=== PATIENT | male | born 2000 | race Caucasian/White ===

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

== ENCOUNTER 2021-02-26 20:24 | Emergency (ER) | payer BC, SELFPAY ==
[2021-02-26 20:25] VITALS: BP 166/92; PULSE 81; RESP 18; TEMP 37.1; O2SAT 98; BMI 41.0
[2021-02-26] MEDS: oxyCODONE 5 MG Tablet PO (20:40)
[2021-02-26] MEDS: Clindamycin HCl 150 MG Capsule 450 MG PO (20:40)
--- NOTE | 2021-03-02 15:22 | EDS_ITS ---
HPI History of Present Illness Chief Complaint: Dental Narrative Narrative: 20-year-old male presenting with right lower dental pain. He denies any trauma. He denies any oral swelling. He states he has a dentist but cannot get into the dentist right away. He has not had a fever or chills. He has no trouble breathing or swallowing. PFSH PFSH Home Medications ondansetron 4 mg PO Q8H PRN PRN #7 tab 10/13/18 [Rx Last Taken Unknown] clindamycin HCl 450 mg PO Q8H 10 Days #90 cap 02/26/21 [Rx Last Taken Unknown] naproxen [Naprosyn] 500 mg PO BID #30 tab 02/26/21 [Rx Last Taken Unknown] Allergy/AdvReac Type Severity Reaction Status Date / Time No Known Allergies Allergy Verified 02/26/21 20:26 Social History Smoking Status: Never smoker ROS ROS ED Constitutional Constitutional ED: Denies chills or fever(s) Eyes Eyes: Denies change in vision ENT ENT ED: Reports other Details: Dental pain right lower mandible ; Denies rhinorrhea or sore throat Cardiovascular Cardiovascular: Denies chest pain or palpitations Respiratory/Chest Respiratory/Chest: Denies cough or dyspnea Gastrointestinal Gastrointestinal: Denies abdominal pain or nausea Genitourinary Genitourinary ED: Denies dysuria or hematuria Musculoskeletal Musculoskeletal: Denies arthralgias or myalgias Integumentary Denies abscess or rash Neurologic Neurologic: Denies headache(s) or paresthesias EXAM Physical Exam Const Positive well nourished General Appearance ED: NAD HEENT HEENT Narrative: Percussion tenderness of tooth #28. There is no gingival swelling. No sublingual edema. Oropharynx is patent without stridor. Negative for trauma Eyes PERRL and EOMs intact bilaterally Neck no lymphadenopathy and supple Resp normal respiratory effort and clear to auscultation bilaterally Cardio regular rate and regular rhythm Neuro oriented x3 Sensorium / Orientation: alert Psych mental status grossly normal Skin no rashes or lesions noted MDM MDM MDM Narrative Medical decision making narrative: Patient presenting with dental pain concern for infection. He has a dental appointment already. He was unable to obtain pain medication or antibiotics. Patient started on clindamycin and Naprosyn and first dose given in the ED. Impression: #1 dental infection Discharge Plan Triage Chief Complaint: Dental ED Provider: Sean Willett Dx/Rx/DC Orders Instructions: ED Dental Pain Prescriptions: New clindamycin HCl 150 mg capsule 450 mg PO Q8H 10 Days Qty: 90 RF: 0 naproxen [Naprosyn] 500 mg tablet 500 mg PO BID Qty: 30 RF: 0 No Action ondansetron 4 MG tablet 4 mg PO Q8H PRN PRN (Reason: Nausea) Qty: 7 RF: 0 Primary Care Provider: Abdifatah Moore NP Referrals: Abdifatah Moore NP, [employer] TECHNICIAN-C [Primary Care Provider] - Disposition Disposition: Home, Self Care Discharge Date/Time: 02/26/21 20:44
== END 2021-02-26 20:44 | disposition home or self-care (01) ==
PROVIDERS: Emergency Provider Student in an Organized Health Care Education/Training Program; PCP Nurse Practitioner Family
DX: K04.7 Periapical abscess without sinus (principal); Z79.1 Long term (current) use of non-steroidal anti-inflammatories (NSAID); Z79.899 Other long term (current) drug therapy
CPT/HCPCS: 99283

== ENCOUNTER 2022-07-27 15:00 | Emergency (ER) | payer BC, SELFPAY ==
[2022-07-27 15:01] VITALS: BP 162/106; PULSE 73; RESP 16; TEMP 35.9; O2SAT 100; BMI 42.0
--- NOTE | 2022-07-27 15:24 | CT_ITS ---
EXAM: CT ABDOMEN AND PELVIS WITHOUT INTRAVENOUS CONTRAST CLINICAL INDICATION: left flank pain TECHNIQUE: Helically acquired images were obtained of the abdomen and pelvis without intravenous contrast. This CT exam was performed using one or more of the following dose reduction techniques: automated exposure control, adjustment of the mA and/or kV according to patient size, and/or use of iterative reconstruction technique. This report was created using [employer] report generation technology. COMPARISON: None. FINDINGS: LOWER THORAX: Unremarkable. Lung bases are clear. No cardiomegaly. No significant pericardial effusion. ABDOMEN: LIVER: Unremarkable. Homogeneous. GALLBLADDER AND BILE DUCTS: Unremarkable. No calcified gallstones. No gallbladder distention or wall edema. No intra- or extrahepatic biliary ductal dilation. PANCREAS: Unremarkable. No focal cystic mass. SPLEEN: Unremarkable. Normal size without focal cystic or solid mass. ADRENALS: Unremarkable. No nodules. KIDNEYS AND URETERS: Mild left-sided hydronephrosis and hydroureter. There is a 4 mm stone distal left ureter. Normal renal size and position. STOMACH AND BOWEL: Unremarkable. No stomach or bowel distention. No focal inflammatory change. PELVIS: APPENDIX: No evidence of acute appendicitis. BLADDER: Unremarkable. REPRODUCTIVE: Unremarkable as visualized. No mass. ABDOMEN and PELVIS: INTRAPERITONEAL SPACE: Unremarkable. No ascites or other fluid collection. No free air. BONES/JOINTS: Unremarkable. No suspicious lytic or blastic abnormality. SOFT TISSUES: Unremarkable. No discrete abdominal or pelvic wall hernia. VASCULATURE: Unremarkable. Abdominal aorta is non-dilated. LYMPH NODES: Unremarkable. No enlarged lymph nodes. CT/Abdomen/Pelvis without Cont IMPRESSION: Obstruction of the left collecting system due to a 4 mm stone in the distal left ureter. There is mild left-sided hydronephrosis. Electronically Signed: Aguila Rodriguez MD at 16:20 EST ,
--- NOTE | 2022-07-27 15:25 | EX.ED.DYSGE1 ---
HPI History of Present Illness Chief Complaint: Flank Pain Informant: patient Onset/Context/Timing Onset: Yesterday Timing: Intermittent Current Severity: Mild Maximum Severity: Severe Narrative Narrative: Patient present secondary to intermittent left flank pain and hematuria. He states that he was leaving work last evening he developed left flank pain. He had to supervisor [employer] on the way home to urinate multiple times. Upon arriving home he noted blood in his urine. Pain seemed to subside last evening but then recurred again today as he was leaving work. He had slight hematuria when he first woke this morning but no further hematuria the remainder the day. He has had nausea but no vomiting. He denies history of kidney stone. No fall or injury. PFSH PFSH Medical History no medical history no medical history Home Medications ondansetron 4 mg disintegrating tablet 4 mg PO Q8H PRN PRN Nausea #7 tabs 10/13/18 [Rx Last Taken Unknown] clindamycin HCl 150 mg capsule 450 mg PO Q8H 10 days #90 caps 02/26/21 [Rx Last Taken Unknown] naproxen 500 mg tablet (Naprosyn) 500 mg PO BID #30 tabs 02/26/21 [Rx Last Taken Unknown] hydrocodone-acetaminophen 5-325mg 5mg-325mg 1 tab PO Q6H PRN pain 3 days #10 tabs 07/27/22 [Rx Last Taken Unknown] ibuprofen 800 mg tablet 800 mg PO Q8H PRN pain #14 tabs 07/27/22 [Rx Last Taken Unknown] ondansetron 4 mg disintegrating tablet 4 mg PO Q8H PRN nausea and vomiting #10 tabs 07/27/22 [Rx Last Taken Unknown] Allergy/AdvReac Type Severity Reaction Status Date / Time No Known Allergies Allergy Verified 07/27/22 15:01 Social History Smoking Status: Never smoker ROS ROS ED Constitutional Constitutional ED: Denies chills or fever(s) Eyes Eyes: Denies change in vision or discharge from eye(s) ENT ENT ED: Denies discharge from eye(s), rhinorrhea or sore throat Cardiovascular Cardiovascular: Denies chest pain or palpitations Respiratory/Chest Respiratory/Chest: Denies cough or dyspnea Gastrointestinal Gastrointestinal: Reports abdominal pain and nausea; Denies diarrhea or vomiting Genitourinary Genitourinary ED: Reports hematuria; Denies dysuria Musculoskeletal Musculoskeletal: Denies back pain or extremity pain Integumentary Denies Abrasions or rash Neurologic Neurologic: Denies headache(s) or weakness Allergic/Immunologic Allergic/Immunologic ED: Denies lip swelling or urticaria EXAM Physical Exam Const Vital Signs: 07/27/22 15:01 Temperature 96.7 F L Temperature Source Temporal Pulse Rate 73 Respiratory Rate 16 Blood Pressure 162/106 H Blood Pressure Mean 124 Pulse Ox 100 Oxygen Delivery Method Room Air Positive well nourished and well developed General Appearance ED: well developed HEENT Reports normocephalic and head/scalp atraumatic Eyes PERRL and EOMs intact bilaterally Neck supple Chest Wall inspection of chest normal and palpation of chest normal Resp normal respiratory effort and clear to auscultation bilaterally Cardio regular rate and regular rhythm GI normal to inspection, nondistended, normoactive bowel sounds Palpation: soft Extremity normal to inspection Neuro oriented x3 and no sensory deficits noted Sensorium / Orientation: alert Motor Exam: strength 5/5 throughout Psych mental status grossly normal Skin no rashes or lesions noted MDM MDM MDM Narrative Medical decision making narrative: Patient did drive himself to the emergency room so Toradol and Zofran were given along with IV fluids. Lab work, urinalysis, CT flank obtained. Lab Data Attestation: I reviewed the patient's lab results. Labs: Laboratory Results - last 24 hr 07/27/22 07/27/22 07/27/22 15:42 15:42 15:42 WBC 8.9 RBC 5.43 Hgb 15.2 Hct 45.0 MCV 82.9 MCH 28.0 MCHC 33.8 RDW Std Deviation 38.8 RDW Coeff of Damian 13.0 Plt Count 242 MPV 11.8 Immature Gran % (Auto) 0.200 Neut % (Auto) 63.0 Lymph % (Auto) 28.6 [place] % (Auto) 6.8 Eos % (Auto) 1.1 Baso % (Auto) 0.3 Absolute Neuts (auto) 5.6 Absolute Lymphs (auto) 2.53 Nucleated RBC % 0 Sodium 140 Potassium 3.6 Chloride 107 Carbon Dioxide 26.0 Anion Gap 7 BUN 15 Creatinine 1.03 Estim Creat Clear Calc 119.81 Est GFR (MDRD) Af Amer 116 Est GFR (MDRD) Non-Af 95 BUN/Creatinine Ratio 14.6 Glucose 95 Calcium 9.8 Urine Color Yellow Urine Clarity Clear Urine pH 6.0 Ur Specific [place] 1.020 Urine Protein Negative Urine Glucose (UA) Normal Urine Ketones 50 H Urine Occult Blood 150 H Urine Nitrite Negative Urine Bilirubin Negative Urine Urobilinogen Normal Ur Leukocyte Esterase Negative Urine RBC 5-10 SEEN Urine WBC 0-5 SEEN Ur Squamous Epith Cells 0 SEEN Urine Bacteria 0 SEEN Urine Mucus 0 SEEN Radiography Diagnostic Testing: Clinical Impression(s) from Imaging Studies Abdomen/Pelvis CT 07/27/22 15:24 IMPRESSION: Obstruction of the left collecting system due to a 4 mm stone in the distal left ureter. There is mild left-sided hydronephrosis. Electronically Signed: Aguila Rodriguez MD at 16:20 EST , Treatment and Re-Evaluation Narrative: On repeat evaluation patient is resting comfortably. He easily awakens. CBC and chemistry studies are unremarkable with normal renal function. Urinalysis does reveal blood but no sign of infection. CT flank reveals obstruction of the left secondary to a 4 mm stone in the distal left ureter. Mild left hydronephrosis is noted. Test results are discussed with the patient. I will write him for ibuprofen, Zofran, [place]. He is referred to Dr. Espinoza if not improving. Return instructions to the ER are also given. Discharge Plan Triage Chief Complaint: Flank Pain ED Provider: Radha Bishop Dx/Rx/DC Orders Clinical Impression: Ureterolithiasis Instructions: ED Kidney Stone w/ Colic Prescriptions: New ibuprofen 800 mg tablet 800 mg PO Q8H PRN (Reason: pain) Qty: 14 0RF ondansetron 4 mg tablet,disintegrating 4 mg PO Q8H PRN (Reason: nausea and vomiting) Qty: 10 0RF hydrocodone-acetaminophen 5-325 mg tablet 1 tab PO Q6H PRN (Reason: pain) 3 Days Qty: 10 0RF No Action ondansetron 4 MG tablet 4 mg PO Q8H PRN PRN (Reason: Nausea) Qty: 7 0RF clindamycin HCl 150 mg capsule 450 mg PO Q8H 10 Days Qty: 90 0RF naproxen [Naprosyn] 500 mg tablet 500 mg PO BID Qty: 30 0RF Primary Care Provider: Abdifatah Moore NP Referrals: Bryson Espinoza MD [Med Staff - Active Staff] - 1 Week if not improving Abdifatah Moore NP, HARNESS TIER-C [Primary Care Provider] - Disposition Disposition: Home, Self Care
[2022-07-27 15:47] LABS: Bacteria 0 SEEN /hpf (None Seen); Mucous, Urine 0 SEEN /hpf (<or=2+); Squamous Epithelial Cells - UA 0 SEEN /hpf (0-5)
[2022-07-27] MEDS: 0.9% Normal Saline 1,000 ML 1000 ML IV (15:48)
[2022-07-27] MEDS: Ketorolac 30 MG/ML Syringe IV (15:49)
[2022-07-27] MEDS: Ondansetron 4 MG/2 ML Vial IV (15:49)
[2022-07-27 15:51] LABS: Color, Urine Yellow (Yellow); Glucose, Dipstick Normal (Normal); Ketone-Dipstick 50 mg/dl (Negative); Leukocyte Esterase-Dipstick Negative /ul (Negative); Nitrite-Dipstick Negative (Negative); Occult Blood-Urine 150 /ul (Negative); Protein-Dipstick Negative (Negative); Urine Bilirubin Dipstick Negative (Negative); Urine Clarity Clear (Clear); Urine Urobilinogen Normal (Normal)
[2022-07-27 16:00] LABS: Absolute Lymphocyte Count 2.53 X10^3/uL (0.83-4.51); Absolute Neutrophil Count 5.6 X10^3/uL (2.0-7.7); Basophil# 0.03 X10^3/uL; Basophil% 0.3 % (0-1); Eosinophils% 1.1 % (0-5); Hemoglobin 15.2 g/dL (13.0-16.5); Lymphocyte # 2.53 X10^3/ul (0.83-4.51); Lymphocyte % 28.6 % (19-41); Mean Corp Hgb Conc 33.8 g/dL (32-36); Mean Corpuscular Volume 82.9 fL (80-94); Mean Platelet Vol. 11.8 fl (6.2-12.0); Monocyte% 6.8 % (0-10); NRBC Flagged by Analyzer 0 % (0-5); Neutrophil # 5.57 X10^3/uL (2.7-7.7); Platelet Count 242 K/mm3 (150-450); RBC Distribution Width SD 38.8 fl (35.1-43.9); Red Blood Count 5.43 M/mm3 (4.6-6.2); White Blood Count 8.9 K/mm3 (4.4-11.0)
[2022-07-27 16:03] LABS: Red Blood Cells-Urine 5-10 SEEN /hpf (0-5); White Blood Cells 0-5 SEEN /hpf (0-5)
[2022-07-27 16:05] LABS: Anion Gap 7 (5-15); BUN 15 mg/dL (7-18); BUN/Creat Ratio 14.6 RATIO (10-20); Calcium,Total 9.8 mg/dL (8.5-10.1); Chloride 107 mmol/L (98-107); Creatinine, Serum 1.03 mg/dL (0.70-1.30); EST Glomerular Filtration Rate 95 mL/min (>60); Est Glom Filt Rate - Afr Amer 116 mL/min (>60); Estimated Creatinine Clearance 119.81 ml/min; Glucose 95 mg/dL (74-106); Potassium 3.6 mmol/L (3.5-5.1); Sodium Level 140 mmol/L (136-145)
[2022-07-27 17:00] VITALS: RESP 18
[2022-07-27 17:30] VITALS: RESP 18
== END 2022-07-27 17:31 | disposition home or self-care (01) ==
PROVIDERS: Emergency Provider Emergency Medicine; PCP Nurse Practitioner Family; Visit Provider Emergency Medicine
DX: N13.2 Hydronephrosis with renal and ureteral calculous obstruction (principal)
CPT/HCPCS: 74176; 80048; 81001; 85025; 96361; 96374; 96375; 99282; J7030; A4216; J2405